=== PATIENT | female | born 1990 | race Hispanic/Latino ===

== ENCOUNTER 2023-09-28 15:41 | Emergency (ER) | payer SELFPAY ==
[2023-09-28 16:14] LABS: Absolute Lymphocytes (CBC) 2.9 K/uL (0.7-4.9); Hematocrit 42.1 % (36.0-45.0); Lymphocytes % 25.2 % (15.3-44.8); MCV 92.7 fL (80-100); MPV 8.7 fL (7.6-11.3); Platelets 286 thou/uL (152-406); RBC Red Blood Cell Count 4.55 M/uL (3.86-4.86)
[2023-09-28 16:34] LABS: BUN Blood Urea Nitrogen 16 mg/dL (7-18); Bicarbonate 28 mEq/L (21-32); Glomerular Filtration Rate 119 ml/min (=/>90); Glucose Level 90 mg/dL (74-106); NT PRO-BNP 27 pg/mL (<125); Potassium 3.5 mEq/L (3.5-5.1); Sodium Level 139 mEq/L (136-145)
[2023-09-28 16:37] LABS: Troponin High Sensitivity < 3.0 pg/mL (<58.9)
--- NOTE | 2023-09-28 17:13 | RAD REPORT ---
EXAM DESCRIPTION: Armando Single View09/28/2023 4:58 pm CLINICAL HISTORY: Chest pain COMPARISON: none FINDINGS: The lungs appear clear of acute infiltrate. The heart is normal size IMPRESSION: No acute abnormalities displayed
[2023-09-28] MEDS ORDERED: ASPIRIN 81 MG CHEWABLE TABLET ONE (18:38)
--- NOTE | 2023-09-28 18:47 | RAD REPORT ---
EXAM DESCRIPTION: CT - Chest For Pe Angio - 09/28/2023 6:20 pm CLINICAL HISTORY: Chest pain COMPARISON: None. TECHNIQUE: Dynamically enhanced axial 3 mm thick images of the chest were obtained during administra tion of 100 mL Isovue 370 IV contrast. Coronal and oblique reconstruction images were generated and r eviewed. Exam utilizes a protocol for optimal evaluation of pulmonary arterial tree. Maximum intensity projections 3D imaging was utilized All CT scans are performed using dose optimization technique as appropriate and may include automated exposure control or mA/KV adjustment according to patient size. FINDINGS: A pulmonary embolus is not seen. A thoracic aortic aneurysm is not noted. A pleural effusion is not seen. A pericardial effusion is not seen. A lung consolidation is not present. IMPRESSION: Negative for a pulmonary embolism.
--- NOTE | 2023-09-28 19:04 | EDPHYS ---
Physician Documentation [facility] Name: Samantha Boyd Age: 33 yrs Sex: Female : 1990 Arrival Date: 09/28/2023 Time: 15:41 Bed 10 Private MD: ED Physician Brown Wright HPI: 09/28 16:32 This 33 yrs old Female presents to ER via Ambulatory with complaints of cp3 Shortness Of Breath, Dizziness, Chest Pain. 16:32 Patient is a 33-year-old female with no significant past medical history who presents cp3 to the ED with left-sided pleuritic chest pain, shortness of breath, dizziness and near syncope starting 1 hour prior to arrival. On arrival to the ED symptoms resolved. Patient denies fever, chills, nausea, vomiting, cough. Historical: - Allergies: 15:51 No Known Allergies; hb - Home Meds: 15:51 None [Active]; hb - PMHx: 15:51 None; hb - PSHx: 15:51 Neck; D\T\C; hb - Immunization history:: Adult Immunizations up to date. - Social history:: Smoking status: Reported history of juuling and/or vaping. ROS: 16:32 Constitutional: Negative for fever, chills, and weight loss, Eyes: Negative for injury, cp3 pain, redness, and discharge, ENT: Negative for injury, pain, and discharge, Neck: Negative for injury, pain, and swelling, Abdomen/GI: Negative for abdominal pain, nausea, vomiting, diarrhea, and constipation, Back: Negative for injury and pain, MS/Extremity: Negative for injury and deformity, Skin: Negative for injury, rash, and discoloration, Neuro: Negative for headache, weakness, numbness, tingling, and seizure, Psych: Negative for depression, anxiety, suicide ideation, homicidal ideation, and hallucinations, Allergy/Immunology: Negative for hives, rash, and allergies, Endocrine: Negative for neck swelling, polydipsia, polyuria, polyphagia, and marked weight changes, Hematologic/Lymphatic: Negative for swollen nodes, abnormal bleeding, and unusual bruising, 16:32 Cardiovascular: Positive for chest pain, 16:32 Respiratory: Positive for shortness of breath, Exam: 16:32 Constitutional: This is a well developed, well nourished patient who is awake, alert, cp3 and in no acute distress. Head/Face: Normocephalic, atraumatic. Eyes: Pupils equal round and reactive to light, extra-ocular motions intact. Lids and lashes normal. Conjunctiva and sclera are non-icteric and not injected. Cornea within normal limits. Periorbital areas with no swelling, redness, or edema. ENT: Nares patent. No nasal discharge, no septal abnormalities noted. Tympanic membranes are normal and external auditory canals are clear. Oropharynx with no redness, swelling, or masses, exudates, or evidence of obstruction, uvula midline. Mucous membranes moist. Neck: Trachea midline, no thyromegaly or masses palpated, and no cervical lymphadenopathy. Supple, full range of motion without nuchal rigidity, or vertebral point tenderness. No Meningismus. Chest/axilla: Normal chest wall appearance and motion. Nontender with no deformity. No lesions are appreciated. Cardiovascular: Regular rate and rhythm with a normal S1 and S2. No gallops, murmurs, or rubs. Normal PMI, no JVD. No pulse deficits. Respiratory: Lungs have equal breath sounds bilaterally, clear to auscultation and percussion. No rales, rhonchi or wheezes noted. No increased work of breathing, no retractions or nasal flaring. Abdomen/GI: Soft, non-tender, with normal bowel sounds. No distension or tympany. No guarding or rebound. No evidence of tenderness throughout. Skin: Warm, dry with normal turgor. Normal color with no rashes, no lesions, and no evidence of cellulitis. MS/ Extremity: Pulses equal, no cyanosis. Neurovascular intact. Full, normal range of motion. Neuro: Awake and alert, GCS 15, oriented to person, place, time, and situation. Cranial nerves II-XII grossly intact. Motor strength 5/5 in all extremities. Sensory grossly intact. Cerebellar exam normal. Normal gait. Psych: Awake, alert, with orientation to person, place and time. Behavior, mood, and affect are within normal limits. Vital Signs: 15:48 BP 139 / 103; Pulse 78; Resp 16; Temp 98.1(TE); Pulse Ox 100% on R/A; Weight 65.77 kg; hb Height 4 ft. 11 in. ; Pain 5/10; 15:48 Body Mass Index 29.29 (65.77 kg, 149.86 cm) hb 15:48 Pain Scale: Adult hb MDM: 15:53 Patient medically screened. 16:32 Differential diagnosis: Anemia Anxiety Reaction Bronchitis pneumonia, pulmonary edema, cp3 Pulmonary Embolism reactive airway disease, Unstable Angina. Data reviewed: vital signs, nurses notes. Consideration of Admission/Observation Escalation of care including admission/observation considered. ED course: ekg interpreted by me at 1600- sinus rhythm, no evidence of acute mi, rate 72. 19:04 I considered the following discharge prescriptions or medication management in the [facility] emergency department Medications were administered in the Emergency Department. See MAR. ED course: cxr- no acute cardiopulmonary process. 09/28 15:54 Order name: Basic Metabolic Panel; Complete Time: 17:29 [facility] 09/28 15:54 Order name: CBC with Diff; Complete Time: 17:29 [facility] 09/28 15:54 Order name: D-Dimer; Complete Time: 17:29 [facility] 09/28 15:54 Order name: NT PRO-BNP; Complete Time: 17:29 [facility] 09/28 15:54 Order name: Troponin HS; Complete Time: 17:29 [facility] 09/28 15:54 Order name: XRAY Chest (1 view); Complete Time: 17:29 [facility] 09/28 17:30 Interpretation: Chest x-ray interpreted by me no acute cardiopulmonary process. [facility] 09/28 17:30 Order name: CT Chest For PE Angio; Complete Time: 18:52 [facility] 09/28 15:54 Order name: EKG; Complete Time: 15:55 [facility] 09/28 15:54 Order name: Cardiac monitoring; Complete Time: 18:26 [facility] 09/28 15:54 Order name: EKG - Nurse/Tech; Complete Time: 16:02 [facility] 09/28 15:54 Order name: IV Saline Lock; Complete Time: 16:07 [facility] 09/28 15:54 Order name: Labs collected and sent; Complete Time: 16:07 [facility] 09/28 15:54 Order name: O2 Per Protocol; Complete Time: 18:26 [facility] 09/28 15:54 Order name: O2 Sat Monitoring; Complete Time: 18:26 3 Administered Medications: 18:45 Drug: Aspirin PO Chewable Tablet 324 mg PO once; 81 mg tablets x 4 Route: PO; bp 19:19 Follow up: Response: No adverse reaction bp Disposition Summary: 09/28/23 19:03 Discharge Ordered Notes: Location: Home cp3 Condition: Stable cp3 Diagnosis - Shortness of breath cp3 - Chest pain on breathing cp3 - Palpitations cp3 Followup: cp3 - With: Sameer Cooper DO - When: Upon discharge from the Emergency Department - Reason: Continuance of care Discharge Instructions: - Discharge Summary Sheet cp3 - Nonspecific Chest Pain, Adult cp3 - Palpitations, Gjan-so-Bdux cp3 Forms: - Medication Reconciliation Form cp3 - Thank You Letter cp3 - Antibiotic Education cp3 - Prescription Opioid Use cp3 - Patient Portal Instructions cp3 - Leadership Thank You Letter cp3 Prescriptions: - Hydroxyzine HCl 25 mg Oral Tablet - take 1 tablet ORAL route every 6 hours As needed; 12 tablet; Refills: 0, cp3 Product Selection Permitted Signatures: Dispatcher [employer] Brown Carreon MD MD cp3 Delfino Olvera PA PA cp Carine Rajput, GRACIE RN Jack Quiroga RN RN bp
--- NOTE | 2023-09-28 19:04 | ER ---
Nurse's Notes [facility] Name: Samantha Boyd Age: 33 yrs Sex: Female : 1990 Arrival Date: 09/28/2023 Time: 15:41 Bed 10 Private MD: Diagnosis: Shortness of breath;Chest pain on breathing;Palpitations Presentation: 09/28 15:48 Chief complaint: Dizziness, SOB, sharp left sided chest pain, and pain with breathing x hb 3 days. Coronavirus screen: Client presents with at least one sign or symptom that may indicate coronavirus-19. Provider contacted for isolation considerations. Ebola Screen: No symptoms or risks identified at this time. Initial Sepsis Screen: Does the patient meet any 2 criteria? No. Patient's initial sepsis screen is negative. Does the patient have a suspected source of infection? No. Patient's initial sepsis screen is negative. Risk Assessment: Do you want to hurt yourself or someone else? Patient reports no desire to harm self or others. Onset of symptoms was September 26, 2023. 15:48 Method Of Arrival: Ambulatory hb 15:48 Acuity: JON 3 hb Triage Assessment: 19:18 General: Appears in no apparent distress. Behavior is calm, cooperative, appropriate bp for age. Pain: Denies pain. Respiratory: Reports shortness of breath Onset: The symptoms/episode began/occurred at an unknown time. the patient reports symptoms have resolved. Historical: - Allergies: 15:51 No Known Allergies; hb - Home Meds: 15:51 None [Active]; hb - PMHx: 15:51 None; hb - PSHx: 15:51 Neck; D\T\C; hb - Immunization history:: Adult Immunizations up to date. - Social history:: Smoking status: Reported history of juuling and/or vaping. Screenin:19 [facility] ED Fall Risk Assessment (Adult) History of falling in the last 3 months, bp including since admission No falls in past 3 months (0 pts). Abuse screen: Denies threats or abuse. Denies injuries from another. Nutritional screening: No deficits noted. Tuberculosis screening: No symptoms or risk factors identified. Vital Signs: 15:48 BP 139 / 103; Pulse 78; Resp 16; Temp 98.1(TE); Pulse Ox 100% on R/A; Weight 65.77 kg; hb Height 4 ft. 11 in. ; Pain 5/10; 15:48 Body Mass Index 29.29 (65.77 kg, 149.86 cm) hb 15:48 Pain Scale: Adult hb ED Course: 15:44 Patient arrived in ED. ts1 15:51 Triage completed. hb 15:53 Delfino Olvera PA is PHCP. cp 15:53 Brown Wright MD is Attending Physician. cp 15:53 Arm band placed on. hb 16:07 Basic Metabolic Panel Sent. hb 16:07 CBC with Diff Sent. hb 16:07 D-Dimer Sent. hb 16:07 NT PRO-BNP Sent. hb 16:07 Troponin HS Sent. hb 16:08 Inserted saline lock: 20 gauge in right antecubital area, using aseptic technique. hb Blood collected. 17:00 XRAY Chest (1 view) In Process Unspecified. EDMS 18:22 CT Chest For PE Angio In Process Unspecified. EDMS 18:23 Jack Quiroga, RN is Primary Nurse. bp 19:02 Sameer Cooper DO is Referral Physician. cp3 19:19 Patient has correct armband on for positive identification. bp 19:19 No provider procedures requiring assistance completed. IV discontinued, intact, bp bleeding controlled, No redness/swelling at site. Pressure dressing applied. Administered Medications: 18:45 Drug: Aspirin PO Chewable Tablet 324 mg PO once; 81 mg tablets x 4 Route: PO; bp 19:19 Follow up: Response: No adverse reaction bp Outcome: 19:03 Discharge ordered by . cp3 19:19 Discharged to home ambulatory, bp 19:19 Condition: stable 19:19 Discharge instructions given to patient, Instructed on discharge instructions, follow up and referral plans. medication usage, Demonstrated understanding of instructions, follow-up care, medications, Prescriptions given X 1, 19:20 Patient left the ED. bp Signatures: Dispatcher [employer] EDMS Brown Wright MD MD cp3 Delfino Olvera PA PA cp Baxter, Heather, Jack Whyte RN, GRACIE RN Nicol Chowdhury PAS PAS ts1
[2023-09-28 21:51] VITALS: BP 139/103; TEMP 98.1; O2SAT 100
--- NOTE | 2023-10-01 12:33 | EKG ---
Test Date: 2023-09-28 Test Time: 16:00:33 Site Worker: HB MEASUREMENT RESULTS: Intervals: Rate: 72 SD: 172 QRSD: 86 QT: 398 QTc: 435 [place]: P: 49 SD: 172 QRS: 24 T: 60 INTERPRETIVE STATEMENTS: Normal sinus rhythm Normal ECG No previous ECG available for comparison Electronically Signed On 10-01-23 12:27:36 PRIMER CHARGER by Vinicius Tapia
== END 2023-09-28 19:20 | disposition home or self-care (01) ==
LOC: ER 15:41
DX: R07.1 Chest pain on breathing (principal); R00.2 Palpitations
CPT/HCPCS: 36415; 71045; 71275; 80048; 83880; 84484; 85025; 85379; 93005; 99284; Q9967